=== PATIENT | female | born 1990 | race Two or more races ===

== ENCOUNTER 2019-12-31 16:57 | Emergency (ER) | payer SELFPAY | END 2019-12-31 17:32 | disposition left against medical advice (07) | LOC: JD.ED 16:57 | DX: Z53.21 Procedure and treatment not carried out due to patient leaving prior to being seen by health care provider (principal) ==

== ENCOUNTER 2020-03-03 02:09 | Emergency (ER) | payer BC ==
--- NOTE | 2020-03-03 04:13 | EDM.PDOC ---
ED HPI GENERAL MEDICAL PROBLEM - General Chief Complaint: FUNDRAISING OFFICER Problem Stated Complaint: 9 WKS AND BLEEDING Time Seen by Provider: 03/03/20 03:53 Source of Information: Reports: Patient History Limitations: Reports: No Limitations - History of Present Illness INITIAL COMMENTS - FREE TEXT/NARRATIVE: This is a 29-year-old female. Onset around 1 AM this morning when she went to the bathroom with vaginal bleeding. She has not had any significant cramping though she has been tender in her lower abdomen. She is 3 para 0 aborta 2. Her last menstrual period was December 31 and she is approximately 9 weeks along. Because of the vaginal bleeding and her previous history of 2 miscarriages she comes to the ER for evaluation. She denies any excessive cramping though she says she is tender in the lower abdomen. She does have a history of endometriosis that is thought to be the reason why she is having the miscarriages. She has not been worked up for the miscarriages in the past. States she had small clots of blood but there was no tissue or large clot that she passed. Lower Abdomen Pain Score (Numeric/FACES): 3 - Related Data Allergies Allergy/AdvReac Type Severity Reaction Status Date / Time No Known Allergies Allergy Verified 03/03/20 03:28 Home Meds: Home Meds . 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) Other FUNDRAISING OFFICER History: pelvic pain Musculoskeletal History: Reports: None Neurological History: Reports: None Psychiatric History: Reports: None Endocrine/Metabolic History: Reports: None Hematologic History: Reports: None Immunologic History: Reports: None Oncologic (Cancer) History: Reports: None Dermatologic History: Reports: None - Past Surgical History Head Surgeries/Procedures: Reports: None Cardiovascular Surgical History: Reports: None Respiratory Surgical History: Reports: None GI Surgical History: Reports: None Female Surgical History: Reports: None Male Surgical History: Reports: None Endocrine Surgical History: Reports: None Neurological Surgical History: Reports: None Musculoskeletal Surgical History: Reports: None Oncologic Surgical History: Reports: None Dermatological Surgical History: Reports: None Social & Family History - Family History Family Medical History: Noncontributory - Tobacco Use Smoking Status *Q: Never Smoker - Caffeine Use Caffeine Use: Reports: None - Recreational Drug Use Recreational Drug Use: No ED ROS GENERAL - Review of Systems Review Of Systems: See Below Constitutional: Denies: Fever, Chills HEENT: Reports: No Symptoms Respiratory: Reports: No Symptoms Cardiovascular: Reports: No Symptoms Endocrine: Reports: No Symptoms GI/Abdominal: Reports: Abdominal Pain. Denies: Diarrhea, Nausea, Vomiting : Reports: Other (Vaginal bleeding) Musculoskeletal: Reports: No Symptoms Skin: Reports: No Symptoms Neurological: Reports: No Symptoms Psychiatric: Reports: No Symptoms Hematologic/Lymphatic: Reports: No Symptoms ED EXAM - Physical Exam Exam: See Below Exam Limited By: No Limitations General Appearance: Alert, WD/WN, No Apparent Distress Eye Exam: Bilateral Eye: Normal Inspection Ears: Normal External Exam Nose: Normal Inspection Throat/Mouth: Normal Lips, Normal Voice, No Airway Compromise Head: Normocephalic Neck: Supple Respiratory/Chest: No Respiratory Distress, Lungs Clear, Normal Breath Sounds Cardiovascular: Regular Rate, Rhythm, No Murmur GI/Abdominal Exam: Soft, Other (Mildly tender in the lower abdomen on palpation, but there is no guarding there is no rebound noted,) (Female) Exam: Other (The pelvic exam was deferred and tell we get the ultrasound and the blood work back) Back Exam: Full Range of Motion Extremities: Normal Inspection, Normal Range of Motion Neurological: Alert, Oriented Psychiatric: Normal Affect, Normal Mood Skin Exam: Warm, Dry Course - Vital Signs Last Recorded V/S: Last Vital Signs Temp 97.8 F 03/03/20 03:23 Pulse 62 03/03/20 03:23 Resp 19 03/03/20 03:23 BP 121/79 03/03/20 03:23 Pulse Ox 100 03/03/20 03:23 - Orders/Labs/Meds Orders: Active Orders 24 hr Category Date Time Status OB Transvaginal [US] Stat Exams 03/03/20 04:08 Taken PROGESTERONE [CHEM] Stat Lab 03/03/20 04:25 Received Labs: Laboratory Tests 03/03/20 03/03/20 Range/Units 04:25 04:25 WBC 9.32 (3.98-10.04) K/mm3 RBC 4.25 (3.98-5.22) M/mm3 Hgb 13.0 (11.2-15.7) gm/dl Hct 38.8 (34.1-44.9) % MCV 91.3 (79.4-94.8) fl MCH 30.6 (25.6-32.2) pg MCHC 33.5 (32.2-35.5) g/dl RDW Std Deviation 43.8 (36.4-46.3) fL Plt Count 216 (182-369) K/mm3 MPV 11.3 (9.4-12.3) fl Neut % (Auto) 70.0 (34.0-71.1) % Lymph % (Auto) 21.7 (19.3-51.7) % Hyde % (Auto) 7.3 (4.7-12.5) % Eos % (Auto) 0.6 L (0.7-5.8) Baso % (Auto) 0.2 (0.1-1.2) % Neut # (Auto) 6.52 H (1.56-6.13) K/mm3 Lymph # (Auto) 2.02 (1.18-3.74) K/mm3 Hyde # (Auto) 0.68 H (0.24-0.36) K/mm3 Eos # (Auto) 0.06 (0.04-0.36) K/mm3 Baso # (Auto) 0.02 (0.01-0.08) K/mm3 HCG, Quant 914184.0 mIU/mL - Radiology Interpretation Free Text/Narrative:: Sonogram showed a live intrauterine heart rate of 166. Gestational age is 9 weeks 4 days. - Re-Assessments/Exams Free Text/Narrative Re-Assessment/Exam: 03/03/20 05:21 Poke to the patient regarding the ultrasound results. I also spoke to her about her beta-hCG and her CBC and I also ordered a progesterone level but will come back later. I have encouraged her to follow-up with the on-call OB doctor Dr. Diaz by calling her office on Thursday morning to be seen. Departure - Departure Time of Disposition: 05:28 Disposition: Home, Self-Care 01 Condition: Good Clinical Impression: First trimester , Vaginal bleeding in patient at less than 20 weeks gestation - Discharge Information *PRESCRIPTION DRUG MONITORING PROGRAM REVIEWED*: Not Applicable *COPY OF PRESCRIPTION DRUG MONITORING REPORT IN PATIENT ILAN: Not Applicable Instructions: Vaginal Bleeding During , First Trimester Referrals: Callie Adame MD [Physician] - Forms: ED Department Discharge Additional Instructions: Call the OB doctor on Thursday for an appointment, make sure you let them know that you are in the ER you had an ultrasound that showed a live baby at 9 weeks 4 days, we did draw a beta-hCG and a progesterone, take it really easy over the weekend with no straining rest and sleep as much as possible, return to the ER if your symptoms worsen Sepsis Event Note (ED) - Evaluation Sepsis Screening Result: No Definite Risk - Focused Exam Vital Signs: Vital Signs Temp Pulse Resp BP Pulse Ox 03/03/20 03:23 97.8 F 62 19 121/79 100 - My Orders Last 24 Hours: My Active Orders 03/03/20 04:08 OB Transvaginal [US] Stat 03/03/20 04:25 PROGESTERONE [CHEM] Stat - Assessment/Plan Last 24 Hours: My Active Orders 03/03/20 04:08 OB Transvaginal [US] Stat 03/03/20 04:25 PROGESTERONE [CHEM] Stat
--- NOTE | 2020-03-03 11:49 | US ---
First trimester obstetrical ultrasound: Multiple real-time images were obtained transvaginally. Comparison: No previous obstetrical imaging available for current . Dates: Current ultrasound: ELISE 10/02/20, gestational age 9 weeks 4 days Single intrauterine gestation is seen. Amniotic fluid volume is normal. Small embryo is identified. No subchorionic hemorrhage is appreciated. Maternal left ovary shows a 3.0 cm cyst most likely representing a corpus luteum cyst. Right maternal ovary appears normal. Measurements: Wainwright-rump length: 2.71 cm - 9 weeks 4 days Heart rate: 165 bpm Impression: 1. Single intrauterine gestation. Dates as noted above. 2. Corpus luteum cyst within the maternal left ovary. 3. No complicating process otherwise seen by ultrasound exam. Diagnostic code #2 This report was dictated in MDT I agree with preliminary report issued by [facility] ([facility] report finalized on 03/03/20, 6:07 AM [facility])
== END 2020-03-03 05:47 | disposition home or self-care (01) ==
LOC: JD.ED 02:09
DX: O20.9 Hemorrhage in early pregnancy, unspecified (principal); Z3A.09 9 weeks gestation of pregnancy
CPT/HCPCS: 36415; 76817; 76817-26; 84144; 84702; 85025; 99283; 99284-25

== ENCOUNTER 2021-10-03 02:47 | Emergency (ER) | payer SELFPAY ==
[2021-10-03] MEDS ORDERED: Albuterol 0.083% 2.5 MG/3 ML Neb Soln NEB ONE (04:05)
[2021-10-03] MEDS ORDERED: predniSONE 20 MG Tab PO STA (04:35)
== END 2021-10-03 04:47 | disposition home or self-care (01) ==
LOC: JD.ED 02:47
DX: J45.909 Unspecified asthma, uncomplicated (principal)
CPT/HCPCS: 36415; 71045; 80053; 84484; 85025; 85379; 85610; 93005; 94640; 99285; J7512

== ENCOUNTER 2022-02-04 08:43 | Emergency (ER) | payer BC ==
[2022-02-04] MEDS ORDERED: Ondansetron 4 MG Tab.DIS PO ONE (09:32)
== END 2022-02-04 11:45 | disposition home or self-care (01) ==
LOC: JD.ED 08:43
DX: S06.0X9A Concussion with loss of consciousness of unspecified duration, initial encounter (principal); S00.03XA Contusion of scalp, initial encounter; W18.09XA Striking against other object with subsequent fall, initial encounter
CPT/HCPCS: 70450; 99284; A9270

== ENCOUNTER 2023-12-30 10:37 | Emergency (ER) | payer BC, MEDICAID ==
[2023-12-30] MEDS: Ketorolac 60 MG/2 ML SDV IM ONE (13:25)
== END 2023-12-30 13:30 | disposition home or self-care (01) ==
LOC: JD.ED 10:37
DX: S06.0X9A Concussion with loss of consciousness of unspecified duration, initial encounter (principal); V86.55XA Driver of 3- or 4- wheeled all-terrain vehicle (ATV) injured in nontraffic accident, initial encounter
CPT/HCPCS: 70450; 70486; 81025; 96372; 99284; J1885; 99283

== ENCOUNTER 2024-05-18 21:15 | Emergency (ER) | payer MEDICAID ==
[2024-05-18] MEDS ORDERED: Sodium Chloride 0.9% 10 ML Syringe FLUSH PRN (21:45)
[2024-05-18 22:10] LABS: BASOPHILS PERCENT AUTO 0.3 % (0.0-1.0); EOSINOPHILS ABSOLUTE AUTO 0.1 K/mm3 (0.0-0.4); EOSINOPHILS PERCENT AUTO 1.2 % (0.0-6.0); HEMATOCRIT 32.2 % (37.0-47.0); HEMOGLOBIN 11.5 gm/dl (12.0-16.0); IMMATURE GRAN ABSOLUTE AUTO 0.03 K/mm3 (0.00-0.05); IMMATURE GRAN PERCENT AUTO 0.3 % (0.0-0.4); LYMPHOCYTES ABSOLUTE AUTO 2.9 K/mm3 (1.0-4.8); LYMPHOCYTES PERCENT AUTO 28.9 % (24.0-44.0); MEAN CORPUSCULAR HEMOGLOBIN 30.3 pg (28.0-32.0); MEAN CORPUSCULAR HGB CONC 35.7 g/dl (32.0-36.0); MEAN PLATELET VOLUME 10.3 fl (9.4-12.3); MONOCYTES ABSOLUTE AUTO 0.8 K/mm3 (0.0-0.8); MONOCYTES PERCENT AUTO 7.6 % (0.0-8.0); NEUTROPHILS ABSOLUTE AUTO 6.2 K/mm3 (1.8-7.7); NEUTROPHILS PERCENT AUTO 61.7 % (41.0-71.0); PLATELET COUNT,PLT 234 K/mm3 (150-400); RED BLOOD CELL COUNT 3.79 M/mm3 (4.10-5.30); WHITE BLOOD CELL COUNT,WBC 10.09 K/mm3 (3.9-11.3)
[2024-05-18 22:43] LABS: A/G RATIO 0.7 (1-2); ALBUMIN 2.5 g/dl (3.4-5.0); ANION GAP 12.6 (5-15); BILIRUBIN TOTAL 0.2 mg/dL (0.2-1.0); CALCIUM 8.7 mg/dL (8.5-10.1); CREATININE 0.6 mg/dL (0.55-1.02); EST CRCL DRUG DOSING (CG) 111.35 mL/min; POTASSIUM,K 3.6 mEq/L (3.5-5.1); PROTEIN TOTAL,TP 6.3 g/dl (6.4-8.2)
[2024-05-18 22:48] LABS: APPEARANCE,URINE CLEAR (Clear); BILIRUBIN,URINE NEGATIVE (Negative); COLOR,URINE YELLOW (Yellow); GLUCOSE,URINE NEGATIVE (Negative); KETONES,URINE NEGATIVE (Negative); LEUKOCYTE ESTERASE,URINE 3+ (Negative); NITRITE,URINE NEGATIVE (Negative); OCCULT BLOOD,URINE NEGATIVE (Negative); PROTEIN,URINE NEGATIVE (Negative); UROBILINOGEN,URINE 0.2 (0.2-1.0)
[2024-05-18 23:00] LABS: BACTERIA,URINE MODERATE /hpf (FEW); MUCUS,URINE NOT SEEN /hpf (FEW); RBC,URINE 0-5 /hpf (0-5)
[2024-05-19] MEDS: Fluconazole 150 MG Tab PO ONE (00:34)
== END 2024-05-19 00:30 | disposition home or self-care (01) ==
LOC: JD.ED 21:15
DX: O98.812 Other maternal infectious and parasitic diseases complicating pregnancy, second trimester (principal); B37.31 Acute candidiasis of vulva and vagina; Z79.899 Other long term (current) drug therapy; Z3A.19 19 weeks gestation of pregnancy
CPT/HCPCS: 36415; 76805; 76805-26; 80053; 81001; 81515; 84112; 84702; 85025; 87086; 99284